=== PATIENT | female | born 1955 | race Caucasian/White ===

== ENCOUNTER → 2017-08-06 | Outpatient (CLI) | payer OTHER ==
[~2017-08-06] MED LIST: ALDACTONE50 MG PO; AVANDIA8 MG PO; AVAPRO 150 MG150 M1 PO; BENTYL 10 MG CA10 M1 PO; CALCIUM 600 +1 EAC1 PO; CHOLESTYRAMINE L4 GM PO; CRESTOR20 MG PO; FISH OIL 1,001000 M2 PO; GLUCOSAMINE &1 EACH PO; JANUVIA100 MG PO; LOMOTIL TABLET1 EACH PO; METAMUCIL1 EAC1 PO; METFORMIN 500500 MG PO; POLYMYXIN B/TMP10 ML OPHTHALMIC; PROBIOTIC1 EAC2 PO; UNICOMPLEX M TA1 TA1 PO; ZETIA10 MG PO; ZOLOFT 50 MG TA50 M1 PO; ZPAK PO
[2017-08-06 11:24] LABS: ALBUMIN 3.9 g/dL (3.4-5.0); ALKALINE PHOSPHATASE 81 U/L (46-116); ANION GAP 6 mmol/L (7-16); BUN 13 mg/dL (7-18); CALCIUM 8.9 mg/dL (8.5-10.1); CHLORIDE 104 mmol/L (98-107); CHOLESTEROL 118 mg/dL (<200); CO2 32 mmol/L (21-32); CREATININE 0.8 mg/dL (0.6-1.3); GLUCOSE 137 mg/dL (70-99); HDL CHOLESTEROL 34 mg/dL (>40); LDL CHOLESTEROL 47 mg/dL (<100); POTASSIUM 4.3 mmol/L (3.5-5.1); SERUM ASSESSMENT Clear; SGOT 16 U/L (15-37); SGPT 21 U/L (30-65); SODIUM 142 mmol/L (136-145); TC:HDL 3.5 Ratio (Not establshd); TOTAL BILIRUBIN 0.6 mg/dL (<0.1-1.0); TOTAL PROTEIN 7.6 g/dL (6.4-8.2); TRIGLYCERIDE 187 mg/dL (<150); VLDL 37 mg/dL (<40)
== END ==
LOC: M.LAB 10:45
PROVIDERS: Internal Medicine Endocrinology, Diabetes & Metabolism
DX: E11.9 Type 2 diabetes mellitus without complications (principal); I10 Essential (primary) hypertension; E78.2 Mixed hyperlipidemia; E03.9 Hypothyroidism, unspecified

== ENCOUNTER 2018-01-02 12:23 | Emergency (ER) | payer OTHER ==
[~2018-01-02] VITALS: Ht 165.1 cm; Wt 90.7 kg
[~2018-01-02 12:23] MED LIST changes: -BENTYL 10 MG CA10 M1 PO; -CALCIUM 600 +1 EAC1 PO; -CHOLESTYRAMINE L4 GM PO; -FISH OIL 1,001000 M2 PO; -GLUCOSAMINE &1 EACH PO; -JANUVIA100 MG PO; -LOMOTIL TABLET1 EACH PO; -METAMUCIL1 EAC1 PO; -POLYMYXIN B/TMP10 ML OPHTHALMIC; -PROBIOTIC1 EAC2 PO; -UNICOMPLEX M TA1 TA1 PO; -ZPAK PO
[2018-01-02] MEDS ORDERED: CRESTOR20 MG PO (12:35)
[2018-01-02] MEDS ORDERED: BENTYL 10 MG CA10 M1 PO (12:35)
[2018-01-02] MEDS ORDERED: CHOLESTYRAMINE L4 GM PO (12:35)
[2018-01-02] MEDS ORDERED: LOMOTIL TABLET1 EACH PO (12:35)
[2018-01-02] MEDS ORDERED: PROBIOTIC1 EAC2 PO (12:36)
[2018-01-02] MEDS ORDERED: UNICOMPLEX M TA1 TA1 PO (12:36)
[2018-01-02] MEDS ORDERED: JANUVIA100 MG PO (12:36)
[2018-01-02] MEDS ORDERED: CALCIUM 600 +1 EAC1 PO (12:36)
[2018-01-02] MEDS ORDERED: FISH OIL 1,001000 M2 PO (12:36)
[2018-01-02] MEDS ORDERED: GLUCOSAMINE &1 EACH PO (12:37)
[2018-01-02] MEDS ORDERED: METAMUCIL1 EAC1 PO (12:37)
[2018-01-02] MEDS ORDERED: ZPAK PO (13:26)
[2018-01-02] MEDS ORDERED: POLYMYXIN B/TMP10 ML OPHTHALMIC (13:26)
[2018-01-02 13:37] VITALS: BP 129/72
== END 2018-01-02 13:38 | disposition home or self-care (01) ==
LOC: M.ERS 12:23
DX: S05.01XA Injury of conjunctiva and corneal abrasion without foreign body, right eye, initial encounter (principal); H01.9 Unspecified inflammation of eyelid; Z90.89 Acquired absence of other organs; Z91.040 Latex allergy status; Z88.6 Allergy status to analgesic agent; Z88.2 Allergy status to sulfonamides; Z88.8 Allergy status to other drugs, medicaments and biological substances; X58.XXXA Exposure to other specified factors, initial encounter; Y93.89 Activity, other specified; Y92.89 Other specified places as the place of occurrence of the external cause; Y99.8 Other external cause status

== ENCOUNTER → 2018-05-27 | Outpatient (CLI) | payer OTHER ==
[~2018-05-27] MED LIST changes: +BENTYL 10 MG CA10 M1 PO; +CALCIUM 600 +1 EAC1 PO; +CHOLESTYRAMINE L4 GM PO; +FISH OIL 1,001000 M2 PO; +GLUCOSAMINE &1 EACH PO; +JANUVIA100 MG PO; +LOMOTIL TABLET1 EACH PO; +METAMUCIL1 EAC1 PO; +POLYMYXIN B/TMP10 ML OPHTHALMIC; +PROBIOTIC1 EAC2 PO; +UNICOMPLEX M TA1 TA1 PO; +ZPAK PO
== END ==
LOC: M.RAD 13:00
DX: Z12.31 Encounter for screening mammogram for malignant neoplasm of breast (principal)

== ENCOUNTER → 2018-11-06 | Outpatient (CLI) | payer OTHER ==
[2018-11-07 02:05] LABS: GLYCOHEMOGLOBIN (HGB A1C) 7.3 % (4.8-5.6)
== END ==
LOC: M.LAB 09:12
PROVIDERS: General Practice
DX: R73.9 Hyperglycemia, unspecified (principal)

== ENCOUNTER 2019-05-20 09:58 | Emergency (ER) | payer OTHER ==
[~2019-05-20] VITALS: Ht 165.1 cm; Wt 90.7 kg
[~2019-05-20 09:58] MED LIST changes: -METFORMIN 500500 MG PO; +METFORMIN HCL500 MG PO
[2019-05-20] MEDS ORDERED: VIBERZI100 MG PO (10:16)
[2019-05-20] MEDS ORDERED: OCUFLOX5 ML OPHTHALMIC (10:31)
[2019-05-20 10:54] VITALS: BP 157/87
== END 2019-05-20 10:50 | disposition home or self-care (01) ==
LOC: M.ERS 09:58
DX: S05.01XA Injury of conjunctiva and corneal abrasion without foreign body, right eye, initial encounter (principal); Z90.89 Acquired absence of other organs; Z90.721 Acquired absence of ovaries, unilateral; Z85.040 Personal history of malignant carcinoid tumor of rectum; Z91.040 Latex allergy status; Z88.1 Allergy status to other antibiotic agents; Z88.2 Allergy status to sulfonamides; X58.XXXA Exposure to other specified factors, initial encounter; Y92.89 Other specified places as the place of occurrence of the external cause; Y93.89 Activity, other specified; Y99.8 Other external cause status

== ENCOUNTER → 2019-07-24 | Outpatient (CLI) | payer OTHER ==
[~2019-07-24] MED LIST changes: +OCUFLOX5 ML OPHTHALMIC; +VIBERZI100 MG PO
== END ==
LOC: M.RAD 10:42
DX: Z12.31 Encounter for screening mammogram for malignant neoplasm of breast (principal)

== ENCOUNTER 2019-08-25 16:34 | Emergency (ER) | payer OTHER ==
[~2019-08-25] VITALS: Ht 165.1 cm; Wt 90.7 kg
[2019-08-25] MEDS ORDERED: OCUFLOX5 ML OPHTHALMIC (19:14)
[2019-08-25] MEDS ORDERED: PERCOCET PO (19:14)
[2019-08-25 19:31] VITALS: BP 144/89
== END 2019-08-25 19:31 | disposition home or self-care (01) ==
LOC: M.ERS 16:34
DX: S05.02XA Injury of conjunctiva and corneal abrasion without foreign body, left eye, initial encounter (principal); Z90.89 Acquired absence of other organs; Z85.048 Personal history of other malignant neoplasm of rectum, rectosigmoid junction, and anus; Z88.2 Allergy status to sulfonamides; Z88.1 Allergy status to other antibiotic agents; Z91.040 Latex allergy status; X58.XXXA Exposure to other specified factors, initial encounter; Y92.89 Other specified places as the place of occurrence of the external cause; Y93.89 Activity, other specified; Y99.8 Other external cause status

== ENCOUNTER 2019-10-16 13:59 | Emergency (ER) | payer OTHER ==
[~2019-10-16] VITALS: Ht 165.1 cm; Wt 90.7 kg
[~2019-10-16 13:59] MED LIST changes: +PERCOCET PO
[2019-10-16] MEDS ORDERED: PERCOCET PO (16:12)
[2019-10-16] MEDS ORDERED: PREDNISONE 20 M20 MG PO (16:12)
[2019-10-16 16:23] VITALS: BP 172/76
== END 2019-10-16 16:24 | disposition home or self-care (01) ==
LOC: M.ERS 13:59
DX: M25.551 Pain in right hip (principal); Z91.040 Latex allergy status; Z88.2 Allergy status to sulfonamides; Z88.8 Allergy status to other drugs, medicaments and biological substances; Z90.89 Acquired absence of other organs; Z90.721 Acquired absence of ovaries, unilateral

== ENCOUNTER → 2020-06-12 | Outpatient (CLI) | payer OTHER, MEDICARE ==
[~2020-06-12] MED LIST changes: +PREDNISONE 20 M20 MG PO
== END ==
LOC: M.RAD 09:30
PROVIDERS: ATTEND Family Medicine
DX: Z12.31 Encounter for screening mammogram for malignant neoplasm of breast (principal)

== ENCOUNTER → 2020-11-06 | Outpatient (CLI) | payer MEDICARE, OTHER | LOC: M.RAD 10-29 08:23 | PROVIDERS: ATTEND Nurse Practitioner Family | DX: Z13.6 Encounter for screening for cardiovascular disorders (principal); C20 Malignant neoplasm of rectum; E11.9 Type 2 diabetes mellitus without complications ==

== ENCOUNTER → 2020-11-12 | Outpatient (CLI) | payer MEDICARE, OTHER ==
--- NOTE | 2020-11-12 13:52 | 2DMMODE ---
[place] [address] 2 D/M-MODE ECHOCARDIOGRAM Name: RIGO VOGEL Trino Room: [facility]#: [id number] Admission: 11/12/20 Attend Phys: JILLIAN Kebede Discharge: Date of : 53 Date of Service: 11/12/20 1352 Report #: [id number] THIS REPORT FOR: cc: Darian Rodriguez Russell J. DO Liston, Michael J. MD [facility] ~ APPROVED REPORT Study performed: 11/12/2020 09:37:12 EXAM: Comprehensive 2D, Doppler, and color-flow Echocardiogram Patient Location: Out-Patient BSA: 1.96 HR: 86 bpm BP: 120/80 mmHg Other Information Study Quality: Good Indications Follow up after cancer 2D Dimensions IVSd: 11.54 (7-11mm) LVOT Diam: 20.71 (18-24mm) LVDd: 37.81 mm PWd: 10.84 (7-11mm) Ascending Ao: 28.76 (22-36mm) LVDs: 22.43 (25-40mm) Aortic Root: 30.17 mm Volumes Left Atrial Volume (Systole) LA ESV Index: 11.20 mL/m2 Aortic Valve AoV Peak Mikel.: 1.41 m/s AO Peak Gr.: 7.97 mmHg LVOT Max P.80 mmHg AO Mean Gr.: 4.91 mmHg LVOT Mean P.38 mmHg LVOT Max V: 1.10 m/s AO V2 VTI: 28.72 cm LVOT Mean V: 0.71 m/s ARON (VTI): 2.71 cm2 LVOT V1 VTI: 23.06 cm Mitral Valve E/A Ratio: 0.82 [place] [address] 2 D/M-MODE ECHOCARDIOGRAM Name: RIGO VOGEL Room: [facility]#: [id number] Admission: 11/12/20 Attend Phys: JILLIAN Kebede Discharge: Date of : 53 Date of Service: 11/12/20 1352 Report #: [id number] MV Decel. Time: 221.70 ms MV E Max Mikel.: 0.55 m/s MV PHT: 64.29 ms MVA (PHT): 3.42 cm2 TDI E/Lateral E': 7.86 E/Medial E': 6.88 Medial E' Mikel.: 0.08 m/s Lateral E' Mikel.: 0.07 m/s Pulmonary Valve PV Peak Mikel.: 0.91 m/s PV Peak Gr.: 3.32 mmHg Left Ventricle The left ventricle is normal size. There is normal LV segmental wall motion. There is normal left ventricular wall thickness. Left ventricular systolic function is normal. LVEF is 55-60%. Grade I - abnormal relaxation pattern. Right Ventricle The right ventricle is normal size. The right ventricular systolic function is normal. Atria The left atrium size is normal. The right atrium size is normal. Aortic Valve The aortic valve is normal in structure. No aortic regurgitation is present. There is no aortic valvular stenosis. Mitral Valve The mitral valve is normal in structure. There is no mitral valve regurgitation noted. No evidence of mitral valve stenosis. Tricuspid Valve The tricuspid valve is normal in structure. There is no tricuspid valve regurgitation noted. Pulmonic Valve The pulmonary valve is normal in structure. There is no pulmonic valvular regurgitation. Great Vessels The aortic root is normal in size. IVC is normal in size and collapses >50% [place] [address] 2 D/M-MODE ECHOCARDIOGRAM Name: RIGO VOGEL Room: [facility]#: [id number] Admission: 11/12/20 Attend Phys: JILLIAN Kebede Discharge: Date of : 53 Date of Service: 11/12/20 1352 Report #: [id number] Pericardium There is no pericardial effusion. <Conclusion> The left ventricle is normal size. There is normal left ventricular wall thickness. Left ventricular systolic function is normal. LVEF is 55-60%. Grade I - abnormal relaxation pattern. IVC is normal in size and collapses >50% with inspiration. <ELECTRONICALLY SIGNED> By: Juan Schwab MD, FACC 11/12/20 1352 135 135 Juan Schwab MD, FACC /INF
--- NOTE | 2020-11-12 14:06 | EKG ---
[place] [address] ELECTROCARDIOGRAM REPORT Name: RIGO VOGEL Room: [facility]#: [id number] Admission: 11/12/20 Attend Phys: JILLIAN Kebede Discharge: Date of : 53 Date of Service: 11/12/20957 Report #: [id number] THIS REPORT FOR: //name// [facility] Test Date: 2020-11-12 Test Time: 09:58:29 Pat Name: RIGO VOGEL Department: Room: Gender: F Transaction Manager: : 1955 Requested By: Maribeth Rodriguez Order Number: [id number] Reading MD: Juan Schwab Measurements Intervals Jones Rate: 84 P: 55 MA: 137 QRS: 28 QRSD: 89 T: 34 QT: 360 QTc: 426 Interpretive Statements Sinus rhythm No previous ECG available for comparison Electronically Signed On 11-12-2020 14:06:08 CDT by Juan Schwab [email or web address] <ELECTRONICALLY SIGNED> By: Juan Schwab MD, [facility] 11/12/20 1406 Juan Schwab MD, FAC /EPI
== END ==
LOC: M.CRD 11-11 08:00 → M.RAD 10:00 → M.CRD 10:00
PROVIDERS: ATTEND Nurse Practitioner Family
DX: M85.88 Other specified disorders of bone density and structure, other site (principal); M81.0 Age-related osteoporosis without current pathological fracture; E11.9 Type 2 diabetes mellitus without complications; Z85.048 Personal history of other malignant neoplasm of rectum, rectosigmoid junction, and anus

== ENCOUNTER → 2020-11-28 | Outpatient (CLI) | payer MEDICARE, OTHER | LOC: M.ULTRA 09:51 | PROVIDERS: ATTEND Student in an Organized Health Care Education/Training Program | DX: N95.0 Postmenopausal bleeding (principal) ==

== ENCOUNTER → 2021-08-07 | Outpatient (CLI) | payer MEDICARE, OTHER | LOC: M.RAD 09:50 | PROVIDERS: ATTEND Family Medicine | DX: Z12.31 Encounter for screening mammogram for malignant neoplasm of breast (principal) ==